=== PATIENT | female | born 1965 | race Caucasian/White ===

== ENCOUNTER → 2017-09-15 | Outpatient (CLI) | payer OTHER ==
--- NOTE | 2017-09-15 15:39 | REPMRS ---
Patient History The patient states she had a clinical breast exam in 09/23 Patient is postmenopausal. No known family history of cancer. Took hormonal contraceptives for 4 years. Digital Woman Screen Mammo: September 15, 2017 - Exam #: [id number] Bilateral CC and MLO view(s) were taken. Technologist: Chelle Prather, Technologist Prior study comparison: April 28, 2016, digital woman screen mammo performed at [facility]. February 25, 2015, digital woman screen mammo performed at [facility]. February 19, 2014, digital woman screen mammo performed at [facility]. FINDINGS: The breast tissue is heterogeneously dense. This may lower the sensitivity of mammography. There is a moderate amount of heterogeneously dense fibroglandular tissue which is fairly symmetric. There is no interval development of dominant mass, architectural distortion, or clustered microcalcification typical of malignancy. There has been no change in the appearance of the mammogram from the prior studies. ASSESSMENT: BI-RADS/ACR category 1 mammogram. Negative. Recommendation Routine screening mammogram of both breasts in 1 year (for women over age 40). This mammogram was interpreted with the aid of an FDA-approved computer-aided dectection system. Electronically Signed By: Sam Blank MD 09/15/17 2065
== END ==
LOC: M WHC 13:26
PROVIDERS: ATTEND Nurse Practitioner Family
DX: Z12.31 Encounter for screening mammogram for malignant neoplasm of breast (principal)

== ENCOUNTER → 2017-09-15 | Outpatient (REF) | payer OTHER | LOC: M SFHCWAGY 14:10 | PROVIDERS: ATTEND Nurse Practitioner Family | DX: Z01.419 Encounter for gynecological examination (general) (routine) without abnormal findings (principal); Z11.51 Encounter for screening for human papillomavirus (HPV) ==

== ENCOUNTER → 2017-12-12 | Outpatient (REF) | payer OTHER | LOC: M LAB REF 19:20 | DX: N87.9 Dysplasia of cervix uteri, unspecified (principal) ==

== ENCOUNTER → 2018-06-22 | Outpatient (REF) | payer OTHER ==
[2018-06-22 13:20] LABS: BASO % 0.2 % (0.0-1.0); EOS # 0.1 10^3/uL (0.0-0.50); EOS % 1.4 % (0.0-3.0); HEMATOCRIT 38.3 % (36.0-47.0); HEMOGLOBIN 12.6 g/dl (12.0-15.5); IMMATURE GRANULOCYTE % 0.2 % (0-3.0); LYMPH # 1.5 10^3/uL (1.5-4.5); LYMPH % 35.4 % (24.0-44.0); MEAN CORPUSCULAR HEMOGLOBIN 30.6 pg (27.0-33.0); MEAN CORPUSCULAR HGB CONC 32.9 g/dl (32.0-36.5); MONO # 0.4 10^3/uL (0.0-0.8); MONO % 9.3 % (0.0-5.0); NEUTROPHILS # 2.3 10^3/uL (1.8-7.7); NEUTROPHILS % 53.5 % (36.0-66.0); PLATELET COUNT, AUTOMATED 171 10^3/uL (150-450); RED BLOOD COUNT 4.12 10^6/uL (4.00-5.40); RED CELL DISTRIBUTION WIDTH 11.9 % (11.5-14.5); WHITE BLOOD COUNT 4.3 10^3/uL (4.0-10.0)
[2018-06-22 13:50] LABS: ALBUMIN/GLOBULIN RATIO 1.29 (1.00-1.93); ALKALINE PHOSPHATASE 73 U/L (45-117); ALT/SGPT 23 U/L (12-78); ANION GAP 7 MEQ/L (8-16); AST/SGOT 14 U/L (7-37); BILIRUBIN,TOTAL 0.6 MG/DL (0.2-1.0); BLOOD UREA NITROGEN 14 MG/DL (7-18); CARBON DIOXIDE LEVEL 29 MEQ/L (21-32); CHLORIDE LEVEL 107 MEQ/L (98-107); CHOLESTEROL LEVEL 192 MG/DL (<200); CREATININE FOR GFR 0.76 MG/DL (0.55-1.30); FREE T4 0.81 NG/DL (0.76-1.46); GLOMERULAR FILTRATION RATE > 60.0 (>51); GLUCOSE, FASTING 75 MG/DL (70-100); HDL CHOLESTEROL 79 MG/DL (>40); NON-HDL-C 113 MG/DL; POTASSIUM SERUM 4.6 MEQ/L (3.5-5.1); SODIUM LEVEL 143 MEQ/L (136-145); THYROID STIMULATING HORMONE 0.987 uIU/ML (0.358-3.740); TOTAL PROTEIN 7.1 GM/DL (6.4-8.2); TRIGLYCERIDES LEVEL 65 MG/DL (<150)
[2018-06-22 13:57] LABS: TOTAL 25(OH) VITAMIN D 28.2 NG/ML (30.0-100.0)
== END ==
LOC: M SFHCADAM 08:11
DX: Z00.00 Encounter for general adult medical examination without abnormal findings (principal)

== ENCOUNTER 2018-08-16 07:51 | Day surgery (SDC) | payer OTHER ==
[2018-08-16] MEDS: NS 1,000 ML IV (06:00)
[~2018-08-16 07:51] MED LIST: LIDOCAINE 2% INJ 100 MG/5 ML SDV (FOR ANES.) As Ordered; PROPOFOL 200 MG/20 ML VIAL As Ordered
== END 2018-08-16 10:04 | disposition home or self-care (01) ==
LOC: M OPP 07:51
DX: Z12.11 Encounter for screening for malignant neoplasm of colon (principal); K57.30 Diverticulosis of large intestine without perforation or abscess without bleeding; K63.89 Other specified diseases of intestine; G43.909 Migraine, unspecified, not intractable, without status migrainosus
CPT/HCPCS: 45378

== ENCOUNTER → 2018-12-20 | Outpatient (CLI) | payer OTHER ==
--- NOTE | 2018-12-20 13:00 | REPMRS ---
Patient History The patient states she had a clinical breast exam in 12/2018. No known family history of cancer. Took hormonal contraceptives for 4 years. 3D TOMOSYNTHESIS WAS PERFORMED. Digital Woman Screen Mammo: December 20, 2018 - Exam #: [id number] Bilateral CC and MLO view(s) were taken. Technologist: Soni Nye, Technologist Prior study comparison: September 15, 2017, digital woman screen mammo performed at [facility]. April 28, 2016, digital woman screen mammo performed at [facility] to [facility]. FINDINGS: The breast tissue is heterogeneously dense. This may lower the sensitivity of mammography. There has been no change in the appearance of the mammogram from the prior studies. There is a moderate amount of residual fibroglandular tissue which is fairly symmetric. There is no interval development of dominant mass, areas of architectural distortion, or clustered microcalcification typical of malignancy. Assessment: BI-RADS/ACR category 1 mammogram. Negative Mammogram. Recommendation Routine screening mammogram in 1 year (for women over age 40). This mammogram was interpreted with the aid of an FDA-approved computer-aided dectection system. Electronically Signed By: Ronnie Torres MD 12/20/18 1300
== END ==
LOC: M WHC 11:34
PROVIDERS: ATTEND Nurse Practitioner Family
DX: Z12.31 Encounter for screening mammogram for malignant neoplasm of breast (principal)

== ENCOUNTER → 2018-12-20 | Outpatient (REF) | payer OTHER ==
[2018-12-22 16:13] LABS: HPV HYBRID CAPTURE II Positive (Negative)
== END ==
LOC: M SFHCWAGY 12:10
PROVIDERS: ATTEND Nurse Practitioner Family
DX: Z12.4 Encounter for screening for malignant neoplasm of cervix (principal)
CPT/HCPCS: 87624; G0123

== ENCOUNTER → 2019-01-01 | Outpatient (REF) | payer OTHER | LOC: M SFHCWAGY 15:37 | PROVIDERS: ATTEND Nurse Practitioner Women's Health | DX: R87.810 Cervical high risk human papillomavirus (HPV) DNA test positive (principal); Z98.890 Other specified postprocedural states ==

== ENCOUNTER → 2019-03-01 | Outpatient (REF) | payer OTHER | LOC: M SFHCADAM 17:17 | PROVIDERS: ATTEND Family Medicine | DX: F41.9 Anxiety disorder, unspecified (principal) ==

== ENCOUNTER → 2019-04-05 | Outpatient (CLI) | payer OTHER ==
--- NOTE | 2019-04-05 14:05 | REP ---
Clinical: Postmenopausal bleeding . Technique: Transabdominal pelvic ultrasound followed by transvaginal examination for better evaluation of the endometrium and adnexa with color Doppler evaluation of the ovaries. Findings: Bladder is unremarkable and measures 5.8 x 4.8 x 2.8 cm . Heterogeneous anteverted uterus measures 0.3 x 4.7 x 5.9 cm with small cystic changes to the endometrium which are likely chronic and nonspecific as well as 7 mm Nabothian cyst. The endometrial complex is thickened to 12 mm without discrete endometrial abnormality identified. Bilateral ovaries are normal in appearance and vascularity without evidence for torsion. Right ovary measures 1.6 x 1.0 x 1.4 cm ; R I = 0.68 . Left ovary measures 2.0 x 1.3 x 1.5 cm ; R I = 0.20 . No pelvic fluid or adnexal mass lesion . Impression: 1. Heterogeneous uterus as described above with presumed chronic changes. 2. Endometrial complex is heterogeneous and thickened to 12 mm but without discrete focal abnormality appreciated. 3. Bilateral ovaries are normal in appearance and without torsion. Electronically Signed by Josesito Coles MD 04/05/2019 01:56 P
== END ==
LOC: M RAD 11:59
PROVIDERS: ATTEND Family Medicine
DX: N95.0 Postmenopausal bleeding (principal); N85.8 Other specified noninflammatory disorders of uterus

== ENCOUNTER → 2019-07-23 | Outpatient (CLI) | payer OTHER ==
[~2019-07-23] MED LIST changes: -LIDOCAINE 2% INJ 100 MG/5 ML SDV (FOR ANES.) As Ordered; -PROPOFOL 200 MG/20 ML VIAL As Ordered; +VENL75CA2 PO
--- NOTE | 2019-07-24 09:01 | ECGEPIP ---
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
== END ==
LOC: M EKG 15:54
PROVIDERS: ATTEND Anesthesiology
DX: Z01.818 Encounter for other preprocedural examination (principal)

== ENCOUNTER 2019-07-26 10:26 | Day surgery (SDC) | payer OTHER ==
[~2019-07-26] VITALS: Ht 165.1 cm; Wt 60.7 kg
[~2019-07-26 10:26] MED LIST changes: +LIDOCAINE 1% MDV 20ML VIAL SQ PRN; +LR 1,000 ML IV ONE
[2019-07-26] MEDS ORDERED: MIDAZOLAM INJ 2 MG/2 ML VIAL (J2250) As Ordered ONE (14:28)
[2019-07-26] MEDS ORDERED: dexameTHASONE 4 MG/ML 1ML VIAL (J1100) As Ordered ONE (14:28)
[2019-07-26] MEDS ORDERED: LIDOCAINE 2% INJ 100 MG/5 ML SDV (FOR ANES.) As Ordered ONE (14:28)
[2019-07-26] MEDS ORDERED: fentaNYL 250 MCG/5 ML INJECTION (J3010) As Ordered ONE (14:28)
[2019-07-26] MEDS ORDERED: ONDANSETRON 4MG/2ML VIAL (J2405) As Ordered ONE (14:28)
[2019-07-26] MEDS ORDERED: propofoL 200 MG/20 ML VIAL As Ordered ONE (14:28)
[2019-07-26] MEDS ORDERED: PHENYLephrine HCL 500 MCG/5 ML (100MCG/ML) SYRINGE (J2370) As Ordered ONE (14:56)
[2019-07-26] MEDS ORDERED: ePHEDrine SULFATE 25 MG/5 ML(5MG/ML) SYRINGE As Ordered ONE (14:56)
[2019-07-26] MEDS ORDERED: KETOROLAC 60 MG/2 ML VIAL (J1885) As Ordered ONE (15:07)
[2019-07-26] MEDS ORDERED: oxyCODONE 5MG TAB PO PRN (16:00)
[2019-07-26] MEDS ORDERED: fentaNYL 100 MCG/2 ML INJECTION (J3010) IV PRN (16:00)
[2019-07-26] MEDS ORDERED: LR 1,000 ML IV SCH ×2 (16:00)
[2019-07-26] MEDS ORDERED: ONDANSETRON 4MG/2ML VIAL (J2405) IV PRN (16:00)
[2019-07-26] MEDS ORDERED: IBUPROFEN 600 MG TAB PO PRN (16:00)
[2019-07-26 16:37] VITALS: BP 109/57
--- NOTE | 2019-07-27 07:28 | RO ---
DATE OF PROCEDURE: 07/26/2019 PREPROCEDURE DIAGNOSES: Post menopausal bleeding. Abnormal sonogram. POSTPROCEDURE DIAGNOSES: Post menopausal bleeding. Abnormal sonogram. PROCEDURE: Dilation and curettage. Hysteroscopy. MyoSure resection of that overgrowth. SURGEON: Dr. Dori Pedro PADDED PRODUCTS FINISHER: None. ANESTHESIA: Laryngeal mask anesthesia (LMA). FINDINGS: There is some small polypoid overgrowth that really did not look alarming. DESCRIPTION OF PROCEDURE: Kristin was brought to the operating room where sufficient LMA anesthesia was induced. She was prepped and draped and positioned in the usual fashion. The bladder was emptied of a couple of hundred milliliters of urine. The cervix grasped with a single tooth tenaculum. The uterus is somewhat mobile from below. The cervix was carefully dilated. The uterus was sounded to 7 and then the hysteroscope placed with the endometrial cavity visualized. Initial pictures we took, for some reason, it was malfunctioning. It appeared that it was working but did not process through. So some of those came out just too dark to see. Nevertheless, she had some mild polypoid overgrowth. Some of these had a fairly broad base but they really were not particularly vascular. They did not have a kind of round-like appearance at that some more concerning things have. Just looked like more endometrium than you would expect in a postmenopausal woman. That said, we were able to use the MyoSure LITE to resect all of this and really were able to resect down to normal appearing uterus and there was otherwise a normal contour and normal ostia, etc. We did run a few passes with the curet after using the MyoSure. We had normal uterine cry throughout and so the procedure was then ended. ESTIMATED BLOOD LOSS: Maybe 3 mL. FLUID REPLACEMENT: Crystalloid. COMPLICATIONS: None. CONDITION AND DISPOSITION: Kristin tolerated the procedure well and was recovering in the recovery room in good condition.
== END 2019-07-26 16:40 | disposition home or self-care (01) ==
LOC: M SDC 10:26
PROVIDERS: ATTEND Obstetrics & Gynecology
DX: N95.0 Postmenopausal bleeding (principal); F41.9 Anxiety disorder, unspecified; G43.909 Migraine, unspecified, not intractable, without status migrainosus; Z79.899 Other long term (current) drug therapy
CPT/HCPCS: 58558; 88305; J1100; J1885; J2250; J2370; J2405; J3010

== ENCOUNTER → 2020-01-19 | Outpatient (REF) | payer OTHER ==
[~2020-01-19] MED LIST changes: -LIDOCAINE 1% MDV 20ML VIAL SQ PRN; -LR 1,000 ML IV ONE
[2020-01-19 10:58] LABS: BASO % 0.6 % (0.0-1.0); HEMATOCRIT 42.7 % (36.0-47.0); LYMPH # 1.7 10^3/uL (1.5-5.0); LYMPH % 34.8 % (24.0-44.0); MEAN CORPUSCULAR HEMOGLOBIN 31.3 pg (27.0-33.0); MEAN CORPUSCULAR HGB CONC 32.8 g/dl (32.0-36.5); MEAN CORPUSCULAR VOLUME 95.3 fl (80.0-96.0); MONO # 0.4 10^3/uL (0.0-0.8); MONO % 8.5 % (0.0-5.0); NEUTROPHILS # 2.8 10^3/uL (1.5-8.5); NEUTROPHILS % 55.9 % (36.0-66.0); PLATELET COUNT, AUTOMATED 211 10^3/uL (150-450); RED BLOOD COUNT 4.48 10^6/uL (4.00-5.40); WHITE BLOOD COUNT 4.9 10^3/uL (4.0-10.0)
[2020-01-19 11:09] LABS: ALBUMIN 4.2 GM/DL (3.2-5.2); ALT/SGPT 32 U/L (12-78); BILIRUBIN,TOTAL 0.4 MG/DL (0.2-1.0); BLOOD UREA NITROGEN 15 MG/DL (7-18); CALCIUM LEVEL 8.9 MG/DL (8.5-10.1); CARBON DIOXIDE LEVEL 32 MEQ/L (21-32); CHLORIDE LEVEL 107 MEQ/L (98-107); CHOLESTEROL LEVEL 199 MG/DL (<200); CHOLESTEROL RISK RATIO 2.369 (<5); CREATININE FOR GFR 0.75 MG/DL (0.55-1.30); FREE T4 0.86 NG/DL (0.76-1.46); GLOMERULAR FILTRATION RATE > 60.0 (>51); GLUCOSE, FASTING 81 MG/DL (70-100); HDL CHOLESTEROL 84 MG/DL (>40); LDL CHOLESTEROL 100 MG/DL (<100); NON-HDL-C 115 MG/DL; POTASSIUM SERUM 4.4 MEQ/L (3.5-5.1); SODIUM LEVEL 141 MEQ/L (136-145); TOTAL PROTEIN 7.5 GM/DL (6.4-8.2); TRIGLYCERIDES LEVEL 76 MG/DL (<150)
== END ==
LOC: M SFHCADAM 08:32
PROVIDERS: ATTEND Family Medicine
DX: Z00.00 Encounter for general adult medical examination without abnormal findings (principal)

== ENCOUNTER → 2020-05-22 | Outpatient (CLI) | payer OTHER ==
--- NOTE | 2020-05-22 11:15 | REPMRS ---
Patient History The patient states she had a clinical breast exam in May 2020.No known family history of cancer. Took hormonal contraceptives for 4 years. 3D TOMOSYNTHESIS WAS PERFORMED. [facility]%. VOLCELIOA CATRACHO B. Digital Woman Screen Mammo: May 22, 2020 - Exam #: [id number] Bilateral CC and MLO view(s) were taken. Technologist: Liz Wisdom, Technologist Prior study comparison: December 20, 2018, bilateral digital woman screen mammo performed at [facility]. September 15, 2017, digital woman screen mammo performed at [facility]. FINDINGS: The breast tissue is heterogeneously dense. This may lower the sensitivity of mammography. There has been no change in the appearance of the mammogram from the prior studies. There is a moderate amount of residual fibroglandular tissue which is fairly symmetric. There is no interval development of dominant mass, areas of architectural distortion, or clustered microcalcification typical of malignancy. Assessment: BI-RADS/ACR category 1 mammogram. Negative Mammogram. Recommendation Routine screening mammogram in 1 year (for women over age 40). This mammogram was interpreted with the aid of an FDA-approved computer-aided dectection system. Electronically Signed By: Ronnie Torres MD 05/22/20 6823
== END ==
LOC: M WHC 10:17
PROVIDERS: ATTEND Nurse Practitioner Family
DX: Z12.31 Encounter for screening mammogram for malignant neoplasm of breast (principal)

== ENCOUNTER → 2020-06-16 | Outpatient (REF) | payer OTHER | LOC: M SFHCWAGY 12:03 | PROVIDERS: ATTEND Nurse Practitioner Women's Health | DX: B00.9 Herpesviral infection, unspecified (principal) ==

== ENCOUNTER → 2021-07-16 | Outpatient (CLI) | payer OTHER, BC ==
--- NOTE | 2021-07-16 13:28 | REPMRS ---
Patient History The patient states she had a clinical breast exam in July 2021. No known family history of cancer. Took hormonal contraceptives for 4 years. Patient states no breast complaints today. Patient has signed MRS History Sheet. Digital Woman Screen Mammo: July 16, 2021 - Exam #: [id number] Bilateral CC and MLO view(s) were taken. Technologist: Chelle Prather, Technologist Prior study comparison: May 22, 2020, bilateral digital woman screen mammo performed at [facility]. December 20, 2018, bilateral digital woman screen mammo performed at [facility]. FINDINGS: There are scattered fibroglandular densities. Screening. Digital screening (2D) mammography was performed bilaterally in the CC and MLO projections. Additionally, breast tomosynthesis (3D mammography) was performed bilaterally in the CC and MLO projections. Todays exam was compared to the prior exam/exams. By history, the patient has no complaints of a palpable breast abnormality or other significant breast complaints. The breasts are unchanged in size and shape. There are no sami-soft tissue densities or spiculated masses. There is no internal architectural distortion. There are no suspicious sami-calcific clusters. Skin thickening or nipple retraction is not present. IMPRESSION: BI-RADS Category 2- Benign Findings. There is no evidence of malignant alteration of the breasts. Followup examination recommended in one year. The Volpara volumetric breast density category is B, there are scattered areas of fibroglandular densities. This mammogram was read with the assistance of [facility],an FDA approved computer aided detection system for mammography. The lifetime Tyrer-Cuzick score is 8.2 % Negative x-ray reports should not delay surgical consultation if a dominant or clinically suspicious mass is present. Not all breast cancers can be identified by mammography. Therefore, we recommend that you continue to perform regular breast self-examination and physical examination and then promptly contact your physician of any concerns or changes. Adenosis and dense breasts may obscure an underlying neoplasm. Assessment: BI-RADS/ACR category 2 mammogram. Benign Findings. Recommendation Routine screening mammogram of both breasts in 1 year. Electronically Signed By: Jonnie High DO 07/16/21 1001
== END ==
LOC: M WHC 12:02
PROVIDERS: ATTEND Nurse Practitioner Women's Health
DX: Z12.31 Encounter for screening mammogram for malignant neoplasm of breast (principal)

== ENCOUNTER → 2021-07-16 | Outpatient (REF) | payer OTHER, BC | LOC: M SFHCWAGY 19:21 | PROVIDERS: ATTEND Nurse Practitioner Women's Health | DX: Z12.4 Encounter for screening for malignant neoplasm of cervix (principal) ==

== ENCOUNTER → 2023-04-25 | Outpatient (REF) | payer OTHER, BC | LOC: M LAB REF 09:29 | PROVIDERS: ATTEND Student in an Organized Health Care Education/Training Program | DX: R30.0 Dysuria (principal) ==

== ENCOUNTER → 2023-05-09 | Outpatient (REF) | payer BC, OTHER | LOC: M SFHCADAM 09:40 | PROVIDERS: ATTEND Family Medicine | DX: Z53.9 Procedure and treatment not carried out, unspecified reason (principal) ==

== ENCOUNTER → 2023-05-16 | Outpatient (REF) | payer BC, OTHER ==
[2023-05-16 13:42] LABS: BASO % 0.8 % (0.0-1.0); EOS # 0.1 10^3/uL (0.0-0.5); EOS % 1.7 % (0.0-3.0); HEMOGLOBIN 13.4 g/dl (12.0-15.5); LYMPH # 1.5 10^3/uL (1.5-5.0); LYMPH % 32.4 % (24.0-44.0); MEAN CORPUSCULAR HEMOGLOBIN 30.5 pg (27.0-33.0); MEAN CORPUSCULAR HGB CONC 31.9 g/dl (32.0-36.5); MEAN CORPUSCULAR VOLUME 95.7 fl (80.0-96.0); MONO # 0.4 10^3/uL (0.0-0.8); MONO % 7.6 % (2.0-8.0); NEUTROPHILS # 2.7 10^3/uL (1.5-8.5); NEUTROPHILS % 57.3 % (36.0-66.0); PLATELET COUNT, AUTOMATED 229 10^3/uL (150-450); RED BLOOD COUNT 4.39 10^6/uL (4.00-5.40); WHITE BLOOD COUNT 4.8 10^3/uL (4.0-10.0)
[2023-05-16 14:09] LABS: ALKALINE PHOSPHATASE 94 U/L (46-116); ALT/SGPT 31 U/L (7.0-40); AST/SGOT 17 U/L (<34); BILIRUBIN,TOTAL 0.5 MG/DL (0.3-1.2); BLOOD UREA NITROGEN 16 MG/DL (9-23); CALCIUM LEVEL 9.7 MG/DL (8.5-10.1); CARBON DIOXIDE LEVEL 29 MMOL/L (20-31); CHLORIDE LEVEL 105 MMOL/L (98-107); CHOLESTEROL LEVEL 218 MG/DL (<200); CHOLESTEROL RISK RATIO 3.01 (<5); CREATININE FOR GFR 0.69 MG/DL (0.55-1.30); GLOMERULAR FILTRATION RATE > 60.0 (>51); GLUCOSE, FASTING 72 MG/DL (60-100); HDL CHOLESTEROL 72.2 MG/DL (>40); LDL CHOLESTEROL 122.4 MG/DL (<100); NON-HDL-C 145.8 MG/DL; POTASSIUM SERUM 4.1 MMOL/L (3.5-5.1); SODIUM LEVEL 139 MMOL/L (136-145); THYROID STIMULATING HORMONE 1.173 uIU/ML (0.55-4.78); TOTAL PROTEIN 6.7 G/DL (5.7-8.2); TRIGLYCERIDES LEVEL 117 MG/DL (<150)
== END ==
LOC: M SFHCADAM 09:53
PROVIDERS: ATTEND Family Medicine
DX: Z00.00 Encounter for general adult medical examination without abnormal findings (principal)

== ENCOUNTER → 2023-10-20 | Outpatient (CLI) | payer BC, OTHER | LOC: M WHC 15:07 | PROVIDERS: ATTEND Advanced Practice Midwife | DX: Z12.31 Encounter for screening mammogram for malignant neoplasm of breast (principal) ==

== ENCOUNTER → 2023-10-20 | Outpatient (REF) | payer BC, OTHER | LOC: M SFHCWAGY 17:56 | PROVIDERS: ATTEND Advanced Practice Midwife | DX: Z12.4 Encounter for screening for malignant neoplasm of cervix (principal); R87.618 Other abnormal cytological findings on specimens from cervix uteri | CPT/HCPCS: 87624; G0123 ==

== ENCOUNTER → 2024-05-24 | Outpatient (REF) | payer OTHER, BC ==
[2024-05-24 12:46] LABS: BASO % 0.6 % (0.0-1.0); EOS # 0.1 10^3/uL (0.0-0.5); EOS % 1.2 % (0.0-3.0); HEMATOCRIT 41.4 % (36.0-47.0); HEMOGLOBIN 13.6 g/dl (12.0-15.5); LYMPH # 1.7 10^3/uL (1.5-5.0); LYMPH % 35.5 % (24.0-44.0); MEAN CORPUSCULAR HEMOGLOBIN 31.1 pg (27.0-33.0); MEAN CORPUSCULAR HGB CONC 32.9 g/dl (32.0-36.5); MEAN CORPUSCULAR VOLUME 94.7 fl (80.0-96.0); MONO # 0.4 10^3/uL (0.0-0.8); MONO % 8.6 % (2.0-8.0); NEUTROPHILS # 2.6 10^3/uL (1.5-8.5); NEUTROPHILS % 53.9 % (36.0-66.0); PLATELET COUNT, AUTOMATED 211 10^3/uL (150-450); RED BLOOD COUNT 4.37 10^6/uL (4.00-5.40); WHITE BLOOD COUNT 4.9 10^3/uL (4.0-10.0)
[2024-05-24 13:16] LABS: INR 1.07; PROTHROMBIN TIME 13.6 SECONDS (12.5-14.5)
[2024-05-24 13:17] LABS: THYROID STIMULATING HORMONE 1.418 uIU/ML (0.55-4.78)
[2024-05-24 13:19] LABS: ALBUMIN 4.3 G/DL (3.2-5.2); ALKALINE PHOSPHATASE 94 U/L (46-116); ALT/SGPT 24 U/L (7.0-40); AST/SGOT 15 U/L (<34); BILIRUBIN,TOTAL 0.7 MG/DL (0.3-1.2); BLOOD UREA NITROGEN 13 MG/DL (9-23); CALCIUM LEVEL 9.4 MG/DL (8.5-10.1); CARBON DIOXIDE LEVEL 28 MMOL/L (20-31); CHLORIDE LEVEL 106 MMOL/L (98-107); CHOLESTEROL LEVEL 228 MG/DL (<200); CHOLESTEROL RISK RATIO 3.27 (<5); CREATININE FOR GFR 0.71 MG/DL (0.55-1.30); GLOMERULAR FILTRATION RATE > 60.0 (>51); GLUCOSE, FASTING 79 MG/DL (60-100); HDL CHOLESTEROL 69.6 MG/DL (>40); LDL CHOLESTEROL 145.2 MG/DL (<100); NON-HDL-C 158.4 MG/DL; POTASSIUM SERUM 4.8 MMOL/L (3.5-5.1); SODIUM LEVEL 140 MMOL/L (136-145); TOTAL PROTEIN 6.8 G/DL (5.7-8.2); TRIGLYCERIDES LEVEL 66 MG/DL (<150)
== END ==
LOC: M SFHCADAM 09:00
PROVIDERS: ATTEND Family Medicine
DX: Z00.00 Encounter for general adult medical examination without abnormal findings (principal); R23.3 Spontaneous ecchymoses

== ENCOUNTER → 2025-05-23 | Outpatient (REF) | payer OTHER, BC ==
[2025-05-23 16:03] LABS: BASO # 0.0 10^3/uL (0.0-0.2); BASO % 0.4 % (0.0-1.0); EOS # 0.1 10^3/uL (0.0-0.5); EOS % 1.1 % (0.0-3.0); LYMPH # 1.8 10^3/uL (1.5-5.0); LYMPH % 39.3 % (24.0-44.0); MONO # 0.4 10^3/uL (0.0-0.8); MONO % 9.3 % (2.0-8.0); NEUTROPHILS # 2.2 10^3/uL (1.5-8.5); NEUTROPHILS % 49.7 % (36.0-66.0); PLATELET COUNT, AUTOMATED 191 10^3/uL (150-450)
[2025-05-23 16:28] LABS: ALT/SGPT 24 U/L (7.0-40); AST/SGOT 21 U/L (<34); CALCIUM LEVEL 9.3 MG/DL (8.5-10.1); CARBON DIOXIDE LEVEL 30 MMOL/L (20-31); CHLORIDE LEVEL 105 MMOL/L (98-107); CHOLESTEROL LEVEL 225 MG/DL (<200); CHOLESTEROL RISK RATIO 3.18 (<5); CREATININE FOR GFR 0.73 MG/DL (0.55-1.30); GLOMERULAR FILTRATION RATE > 90.0 (>51); LDL CHOLESTEROL 141.1 MG/DL (<100); NON-HDL-C 154.3 MG/DL; POTASSIUM SERUM 4.6 MMOL/L (3.5-5.1); SODIUM LEVEL 144 MMOL/L (136-145); TRIGLYCERIDES LEVEL 66 MG/DL (<150)
[2025-05-23 16:29] LABS: FREE T4 1.03 NG/DL (0.89-1.76)
== END ==
LOC: M SFHCADAM 09:28
PROVIDERS: ATTEND Family Medicine
DX: Z00.00 Encounter for general adult medical examination without abnormal findings (principal)